=== PATIENT | female | born 1955 | race Caucasian/White ===

== ENCOUNTER 2021-06-22 11:05 | Emergency (ER) | payer MEDICARE, OTHER ==
[2021-06-22 11:54] LABS: #Eosinphils 0.1 thou/uL (0.0-0.7); #Lymphocytes 1.4 thou/uL (1.20-3.40); #Monocytes 0.5 thou/uL (0.11-0.59); #Neutrophils 3.8 thou/uL (1.40-6.50); %Basophils 0.3 % (0.0-1.0); %Eosinophils 1.1 % (0.0-10.0); %Monocytes 8.9 % (0.0-10.0); %Neutrophils 65.8 % (42.0-75.0); Hemoglobin 14.3 g/dL (12.0-16.0); Mean Corpuscular HGB CONC 33.7 g/dL (32.0-36.0); Mean Corpuscular Hemoglobin 30.2 pg (27.0-31.0); Mean Corpuscular Volume 89.6 fL (78.0-98.0); Mean Platelet Volume 10.2 fL (7.4-10.4); Platelet Count 154 thou/uL (130-400); RBC Distribution Width 12.4 % (11.5-14.5); Red Blood Cell (RBC) Count 4.73 mill/uL (4.20-5.40); White Blood Cell (WBC) Count 5.7 thou/uL (4.8-10.8)
[2021-06-22 12:07] LABS: ALT (SGPT) 21 U/L (8-55); AST (SGOT) 18 U/L (5-34); Albumin 4.4 g/dL (3.4-4.8); Alkaline Phosphatase 37 U/L (40-110); Anion Gap 13 mmol/L (10-20); BUN (Urea Nitrogen) 10 mg/dL (9.8-20.1); Bilirubin, Total 0.7 mg/dL (0.2-1.2); Calc. Creatinine Clearance 0 mL/min (70-130); Calcium 9.3 mg/dL (7.8-10.44); Carbon Dioxide 24 mmol/L (23-31); Chloride 107 mmol/L (98-107); Globulin 2.8 g/dL (2.4-3.5); Glucose 111 mg/dL (80-115); Protein, Total 7.2 g/dL (5.8-8.1); Sodium 140 mmol/L (136-145)
[2021-06-22 12:10] LABS: Potassium 3.7 mmol/L (3.5-5.1)
[2021-06-22 12:53] LABS: Bilirubin Negative (Negative); Blood, Urine Negative (Negative); Clarity Clear (Clear); Glucose, Urine (Dipstick) Normal (Negative); Ketone, Urine Trace mg/dL (Negative); Leukocyte Negative Leu/uL (Negative); Nitrite Negative (Negative); Protein, Urine (Dipstick) 20 mg/dL (Neg-Trace); Specific Gravity, Urine 1.014 (1.002-1.036); Urobilinogen Normal mg/dL (Less than 2)
== END 2021-06-22 13:23 | disposition home or self-care (01) ==
LOC: ERS 11:05
DX: R00.2 Palpitations (principal); M06.9 Rheumatoid arthritis, unspecified; Z87.891 Personal history of nicotine dependence; Z79.899 Other long term (current) drug therapy
CPT/HCPCS: 36415; 36416; 80053; 81003; 84443; 84484; 85025; 93005

== ENCOUNTER 2022-06-01 06:02 | Day surgery (SDC) | payer MEDICARE, OTHER ==
[2022-06-01] MEDS ORDERED: Ondansetron PF 4 MG/2 ML Vial ONE ×2 (06:32→10:44)
[2022-06-01] MEDS ORDERED: Morphine 4 MG/ML VIAL ONE (06:32)
[2022-06-01 07:01] LABS: #Basophils 0.1 thou/uL (0.0-0.2); #Eosinphils 0.1 thou/uL (0.0-0.7); #Lymphocytes 1.1 thou/uL (1.20-3.40); #Monocytes 0.5 thou/uL (0.11-0.59); #Neutrophils 8.2 thou/uL (1.40-6.50); %Basophils 0.5 % (0.0-1.0); %Eosinophils 0.6 % (0.0-10.0); %Lymphocytes 11.2 % (21.0-51.0); %Monocytes 5.1 % (0.0-10.0); %Neutrophils 82.6 % (42.0-75.0); ALT (SGPT) 23 U/L (8-55); AST (SGOT) 23 U/L (5-34); Albumin 4.9 g/dL (3.4-4.8); Alkaline Phosphatase 50 U/L (40-110); Anion Gap 17 mmol/L (10-20); BUN (Urea Nitrogen) 15 mg/dL (9.8-20.1); Bilirubin, Total 0.5 mg/dL (0.2-1.2); Calc. Creatinine Clearance 0 mL/min (70-130); Calcium 9.7 mg/dL (7.8-10.44); Carbon Dioxide 23 mmol/L (23-31); Chloride 105 mmol/L (98-107); Estimated GFR 74; Globulin 3.4 g/dL (2.4-3.5); Glucose 147 mg/dL (80-115); Hemoglobin 13.7 g/dL (12.0-16.0); Lipase 24 U/L (8-78); Mean Corpuscular HGB CONC 32.8 g/dL (32.0-36.0); Mean Corpuscular Hemoglobin 29.3 pg (27.0-31.0); Mean Corpuscular Volume 89.4 fL (78.0-98.0); Mean Platelet Volume 10.3 fL (7.4-10.4); Platelet Count 136 thou/uL (130-400); Potassium 3.4 mmol/L (3.5-5.1); Protein, Total 8.3 g/dL (5.8-8.1); Red Blood Cell (RBC) Count 4.68 mill/uL (4.20-5.40); Sodium 142 mmol/L (136-145)
[2022-06-01] MEDS ORDERED: Ketorolac Tromethamine 30 MG/ML VIAL ONE (07:18)
[2022-06-01 08:54] LABS: Bilirubin Negative (Negative); Blood, Urine Negative (Negative); Clarity Turbid (Clear); Glucose, Urine (Dipstick) Normal (Negative); Ketone, Urine Trace mg/dL (Negative); Leukocyte Negative Leu/uL (Negative); Nitrite Negative (Negative); Protein, Urine (Dipstick) 30 mg/dL (Neg-Trace); RBC/HPF None Seen HPF (0-3); Specific Gravity, Urine 1.033 (1.002-1.036); Squamous Epithelial 0-3 HPF (0-3); Urobilinogen Normal mg/dL (Less than 2); WBC/HPF 0-3 HPF (0-3)
[2022-06-01 09:06] LABS: Bacteria/HPF 1+ HPF (None Seen)
[2022-06-01 09:07] LABS: Calcium Oxalate Crystals 1+ HPF (None Seen)
[2022-06-01 09:30] LABS: SARS-CoV-2 NAA Rapid Test Not Detected (NotDetected)
[2022-06-01] MEDS ORDERED: Bupivacaine PF 0.5% 30 ML VIAL ONE (10:31)
[2022-06-01] MEDS ORDERED: EPINEPHrine 1 MG/ML AMP ONE (10:31)
[2022-06-01] MEDS ORDERED: fentaNYL Citrate/PF 100 MCG/2 ML SYRINGE ONE (10:39)
[2022-06-01] MEDS ORDERED: Phenylephrine 10 MG/ML VIAL ONE (10:44)
[2022-06-01] MEDS ORDERED: Dexamethasone 20 MG/5 ML VIAL ONE (10:44)
[2022-06-01] MEDS ORDERED: Succinylcholine 200 MG/10 ml SYRINGE FS ONE (10:44)
[2022-06-01] MEDS ORDERED: PROPOFOL 200 MG/20 ML VIAL ONE (10:44)
[2022-06-01] MEDS ORDERED: Esmolol 100 MG/10 ML VIAL ONE (10:44)
[2022-06-01] MEDS ORDERED: Rocuronium Bromide 10 MG/ML (10ML VIAL) ONE (10:44)
[2022-06-01] MEDS ORDERED: Lidocaine 1% PF 5 ML VIAL ONE (10:44)
[2022-06-01] MEDS ORDERED: Glycopyrrolate 0.2 MG/ML 5 ML SYRINGE ONE (10:44)
[2022-06-01] MEDS ORDERED: Neostigmine Methylsulfate 3 MG/3 ML SYRINGE ONE (10:44)
[2022-06-01] MEDS ORDERED: ePHEDrine 50 MG/ML VIAL ONE (10:44)
[2022-06-01] MEDS ORDERED: Iopamidol 30 ML ONE (10:55)
[2022-06-01] MEDS ORDERED: Iopamidol-370 76% 500 ML 1 ML ONE (11:22)
== END 2022-06-01 13:34 | disposition home or self-care (01) ==
LOC: ERS 06:02 → SDC 10:03
PROVIDERS: ATTEND Specialist
PROC: 0FT44ZZ Resection of Gallbladder, Percutaneous Endoscopic Approach (ICD-10-PCS; principal; 2022-06-01)
PROC: BF101ZZ Fluoroscopy of Bile Ducts using Low Osmolar Contrast (ICD-10-PCS; 2022-06-01)
DX: K80.12 Calculus of gallbladder with acute and chronic cholecystitis without obstruction (principal); K83.8 Other specified diseases of biliary tract; M06.9 Rheumatoid arthritis, unspecified; E78.00 Pure hypercholesterolemia, unspecified; E03.9 Hypothyroidism, unspecified; Z87.891 Personal history of nicotine dependence; Z79.890 Hormone replacement therapy; Z79.899 Other long term (current) drug therapy; Z20.822 Contact with and (suspected) exposure to COVID-19
CPT/HCPCS: 47532; 47563; 74177; 76705; 80053; 83690; 84484; 85025; 93005; C1713 ×2; J1610; U0002; 81003; 81015; 88304; 96365; 96375; J0171; J1100; J1885; J1956; J2270; J2370; J2405; J2704; J3490; Q9967; S0020